=== PATIENT | male | born 1965 | race Caucasian/White ===

== ENCOUNTER 2017-06-27 04:21 | Emergency (ER) | payer SELFPAY ==
[~2017-06-27] VITALS: Ht 170.2 cm; Wt 78.5 kg
[2017-06-27 04:24] VITALS: Ht 170.2 cm; Wt 78.5 kg
[2017-06-27] MEDS ORDERED: TAMS-14 PO (05:17)
[2017-06-27 05:34] LABS: ADD UMIC YES; UR ASCORBIC ACID NEGATIVE (NEGATIVE); UR BACTERIA FEW /HPF (NONE SEEN); UR BILIRUBIN (Dip) NEGATIVE (NEGATIVE); UR BLOOD (Dip) 1+ mg/dL (NEGATIVE); UR CLARITY CLEAR (CLEAR); UR COLOR STRAW (YELLOW); UR GLUCOSE (Dip) NEGATIVE (NEGATIVE); UR KETONES (Dip) NEGATIVE (NEGATIVE); UR LEUKOCYTE ESTERASE (Dip) NEGATIVE Leu/ul (NEGATIVE); UR NITRITE (Dip) NEGATIVE (NEGATIVE); UR RBC 0 /HPF (0-5); UR SPECIFIC GRAVITY (Dip) 1.005 (1.003-1.030); UR TOTAL PROTEIN (Dip) NEGATIVE (NEGATIVE); UR UROBILINOGEN (Dip) NEGATIVE (NEGATIVE)
--- NOTE | 2017-06-27 05:42 | ERD ---
ER Documentation Chief Complaint Date/Time DATE: 06/27/17 TIME: 05:39 Chief Complaint urinary retention since 3 hours ago HPI 1-year-old male presenting to the emergency department with complaints of urinary retention for the past 3 hours. He states he last urinated at 9 PM yesterday. Symptoms are constant. He has had these symptoms multiple times in the past requiring Coleman catheter. He has also had genitourinary surgical procedures in [place] is unable to explain exactly what the surgeries were. He has had no fevers, recent surgery, or other symptoms. ROS All systems reviewed and are negative except as per history of present illness. Medications Home Meds Active Scripts Tamsulosin Hcl* (Flomax*) 0.4 Mg Cap.er.24h, 0.4 MG PO BID, #20 CAP Prov:WILSON GILBERT PA-C 06/27/17 Allergies Allergies: Coded Allergies: No Known Allergy (Unverified , 09/09/13) PMhx/Soc History of Surgery: Yes (urethral surgery) Hx Alcohol Use: Yes Hx Substance Use: No Hx Tobacco Use: No Smoking Status: Never smoker Physical Exam Vitals Vital Signs Date Time Temp Pulse Resp B/P Pulse Ox O2 Delivery O2 Flow Rate FiO2 06/27/17 04:24 97.9 98 20 146/97 98 Physical Exam Const: Toxic, well-appearing male in no acute distress. Head: Atraumatic Eyes: Normal Conjunctiva ENT: Normal External Ears, Nose and Mouth. Skin: No petechiae or rashes Back: No midline or flank tenderness Ext: No cyanosis, or edema Neur: Awake and alert Psych: Normal Mood and Affect Results 24 hrs Laboratory Tests Test 06/27/17 05:02 Urine Color STRAW Urine Clarity CLEAR Urine pH 5.0 Urine Specific [place] 1.005 Urine Ketones NEGATIVEmg/dL Urine Nitrite NEGATIVEmg/dL Urine Bilirubin NEGATIVEmg/dL Urine Urobilinogen NEGATIVEmg/dL Urine Leukocyte Esterase NEGATIVELeu/ul Urine Microscopic RBC 0/HPF Urine Microscopic WBC 0/HPF Urine Bacteria FEW/HPF Urine Hemoglobin 1+mg/dL Urine Glucose NEGATIVEmg/dL Urine Total Protein NEGATIVEmg/dl Procedures/MDM 51-year-old male presenting to the emergency department with complaints of urinary retention. Physical examination is essentially unremarkable. No exact explanation as to why the patient is experiencing urinary retention at this time , however he does have a history of it requiring Coleman catheter. Catheter was inserted by nursing staff in the department and significant amount of clear yellow urine was produced. No evidence of infection on urinalysis. The patient tolerated the procedure well. He was advised to have close follow-up with his primary care physician and urology. He was given information to do so. Was given a prescription for Flomax. Strict ER return precautions were discussed. Low suspicion for life-threatening illness at time of discharge. Departure Diagnosis: Primary Impression: Urinary retention Condition: Fair Patient Instructions: Urinary Retention, Male Referrals: EUGENIE PHELPS MD Additional Instructions: No mas mejor en 2-3 blair, regresar. Mas peor en 24 horas, regresear rapidamente. Ir a doctor primario in 5-7 blair. Usar instrucciones cuando malia medicamento. WILSON GILBERT PA-C Jun 27, 2017 05:42
[2017-07-02] MEDS ORDERED: CIPR500T4 PO (10:43)
== END 2017-06-27 05:35 | disposition home or self-care (01) ==
LOC: FTE 04:21
DX: R33.9 Retention of urine, unspecified (principal)
CPT/HCPCS: 81001; 99283

== ENCOUNTER 2017-07-02 08:08 | Emergency (ER) | END 2017-07-02 10:53 | disposition home or self-care (01) | DX: Z46.6 Encounter for fitting and adjustment of urinary device (principal) ==

== ENCOUNTER 2019-03-15 07:35 | Emergency (ER) | payer SELFPAY ==
[~2019-03-15] VITALS: Ht 154.9 cm; Wt 79.7 kg
[~2019-03-15 07:35] MED LIST: CIPR500T4 PO; TAMS-14 PO
[2019-03-15 07:41] VITALS: Ht 154.9 cm; Wt 79.7 kg
[2019-03-15] MEDS ORDERED: TAMS-14 PO (10:02)
--- NOTE | 2019-03-15 10:02 | ERD ---
ER Documentation Chief Complaint Chief Complaint unable to urinate since midnight. back pain HPI This is a 53-year-old male with a past medical history of urinary retention, noncompliant on Flomax is presenting with 1 day of urinary retention. The patient is able to urinate, but he reports that he is able to urinate is very small. He has urinary frequency and urgency. He does not endorse dysuria. He does not endorse any alleviating or exacerbating factors. He does not endorse any changes to bowel movements. He does endorse mild cramping suprapubic discomfort but no exquisite abdominal pain. The patient denies feeling sick recently. The patient denies fever or chills. The patient has had no headache or vision changes. The patient does not endorse neck or back pain. The patient denies lightheadedness or dizziness. The patient has had no chest pain or trouble breathing. The patient has had no focal deficits. The patient has had no weakness or numbness or tingling to the face or extremities. ROS All systems reviewed and are negative except as per history of present illness. Medications Home Meds Active Scripts Ciprofloxacin Hcl* (Ciprofloxacin Hcl*) 500 Mg Tablet, 500 MG PO BID for 7 Days, TAB Prov:ELIE NGO PA-C 07/02/17 Tamsulosin Hcl* (Flomax*) 0.4 Mg Cap.er.24h, 0.4 MG PO BID, #20 CAP Prov:WILSON GILBERT PA-C 06/27/17 Allergies Allergies: Coded Allergies: No Known Allergy (Unverified , 09/09/13) PMhx/Soc History of Surgery: No Anesthesia Reaction: No Hx Neurological Disorder: No Hx Respiratory Disorders: No Hx Cardiac Disorders: No Hx Psychiatric Problems: No Hx Miscellaneous Medical Probl: Yes (Urinary retention, previous urethral trauma from years ago.) Hx Alcohol Use: Yes Hx Substance Use: No Hx Tobacco Use: No Smoking Status: Never smoker FmHx Family History: No diabetes Physical Exam Vitals Vital Signs Date Temp Pulse Resp B/P (MAP) Pulse Ox O2 O2 Flow FiO2 Time Delivery Rate 03/15/19 97.7 95 18 164/101 95 07:41 (122) Physical Exam Const: No acute distress Head: Atraumatic Eyes: Normal Conjunctiva ENT: Normal External Ears, Nose and Mouth. Neck: Full range of motion. No meningismus. Resp: Clear to auscultation bilaterally Cardio: Regular rate and rhythm, no murmurs Abd: Soft, non distended. Mild suprapubic tenderness and fullness. Normal bowel sounds : Beamer Helper present at all times. 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 Skin: No petechiae or rashes Back: No midline or flank tenderness Ext: No cyanosis, or edema Neur: Awake and alert Psych: Normal Mood and Affect Result Diagram: 03/15/19 0832 03/15/19 0831 Results 24 hrs Laboratory Tests Test 03/15/19 08:31 03/15/19 08:32 Urine Color YELLOW Urine Clarity SLIGHTLY CLOUDY Urine pH 5.0 Urine Specific [place] 1.015 Urine Ketones TRACE mg/dL Urine Nitrite NEGATIVE mg/dL Urine Bilirubin NEGATIVE mg/dL Urine Urobilinogen NEGATIVE mg/dL Urine Leukocyte Esterase NEGATIVE Kary/ul Urine Microscopic RBC 0 /HPF Urine Microscopic WBC 2 /HPF Urine Squamous Epithelial Cells FEW /HPF Urine Mucus FEW /HPF Urine Hemoglobin NEGATIVE mg/dL Urine Glucose NEGATIVE mg/dL Urine Total Protein NEGATIVE mg/dl Sodium Level 138 mmol/L Potassium Level 4.5 mmol/L Chloride Level 106 mmol/L Carbon Dioxide Level 22 mmol/L Anion Gap 10 Blood Urea Nitrogen 15 mg/dl Creatinine 1.07 mg/dl Est Glomerular Filtrat Rate mL/min > 60 mL/min Glucose Level 140 mg/dl Calcium Level 9.6 mg/dl White Blood Count 12.1 10^3/ul Red Blood Count 4.84 10^6/ul Hemoglobin 15.6 g/dl Hematocrit 44.7 % Mean Corpuscular Volume 92.4 fl Mean Corpuscular Hemoglobin 32.2 pg Mean Corpuscular Hemoglobin Concent 34.9 g/dl Red Cell Distribution Width 13.2 % Platelet Count 254 10^3/UL Mean Platelet Volume 10.1 fl Immature Granulocytes % 0.600 % Neutrophils % 88.7 % Lymphocytes % 8.5 % Monocytes % 2.0 % Eosinophils % 0.0 % Basophils % 0.2 % Nucleated Red Blood Cells % 0.0 /100WBC Immature Granulocytes # 0.070 10^3/ul Neutrophils # 10.7 10^3/ul Lymphocytes # 1.0 10^3/ul Monocytes # 0.2 10^3/ul Eosinophils # 0.0 10^3/ul Basophils # 0.0 10^3/ul Nucleated Red Blood Cells # 0.0 10^3/ul Procedures/MDM MDM The patient's presentation warrants further investigation. Previous medical records, if available, were reviewed. LABS The patient's laboratory testing was obtained and reviewed. No emergent treatment was required unless described below. CBC: Mild leukocytosis, likely reactive. No E/o systemic infection or severe anemia or thrombocytopenia Chemistry: No E/o severe acidosis or alkalosis or renal failure or liver disease or diabetic ketoacidosis Urine: No E/o acute infection or hematuria TREATMENT/DISPOSITION The patient presents for urinary retention. There is no evidence of infection. There is no evidence of renal impairment. The patient does have a history of urinary retention in the past. He has been previously started on Flomax, but he is no longer taking this. He has not followed up with anyone in the past. The patient did provide a small urine sample. A bladder scan was completed after the sample was provided and the patient still had 900 cc of urine within the bladder. The patient will have a Coleman catheter placed and will be given a leg bag. The patient will need to have this in place for several days and was instructed to follow-up in the emergency department to have it removed. The patient will be started on a prescription of Flomax. The patient does require urology outpatient evaluation. The patient will be provided resources. 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 The Coleman catheter passed through without complication. I do not suspect urethral stricturing. DISCHARGE Upon reevaluation of the patient, symptoms have improved. No emergent diagnoses were identified. At this time, I feel that the patient stable for discharge. The patient was instructed to follow-up with a primary care physician in 1-3 days. The patient will be given strict precautions with which to return to the emergency department. Prescriptions: Flomax The patient's blood pressure was elevated at greater than 120/80 while in the emergency department. The patient was otherwise stable with no evidence of hypertensive urgency or emergency. The patient does not require admission for blood pressure control. I have discussed with the patient the risks of hypertension. I have instructed the patient to return to the ER for any new or worsening symptoms including chest pain, shortness of breath, headache, blurred vision, confusion, nausea, vomiting or LOC. I have advised the patient to follow up with the primary care physician for outpatient monitoring and treatment for hypertension in 1-3 days. Disclaimer: Inadvertent spelling and grammatical errors are likely due to EHR/ dictation software use and do not reflect on the overall quality of patient care. Note that the electronic time recorded on this note does not necessarily reflect the actual time of the patient encounter. Departure Diagnosis: Primary Impression: Urinary retention Additional Impression: Abdominal fullness in suprapubic region Condition: Stable Patient Instructions: Urinary Retention, Male Additional Instructions: Please return to the emergency department in 2 to 3 days for reassessment of your Coleman catheter and likely removal. It is very important to follow-up with a primary care physician and a urologist. Thank you for for coming to [facility] for your care today. Please ask your nurse or provider if you have questions about your care today and do not leave until all your questions have been answered. Please use any medications given as directed and follow-up with your doctor (or the doctor you were referred to) in the next 1-3 days. If you do not have a primary care doctor you may follow up at the [facility] or [facility] (listed below). You may also use motrin and tylenol as needed for fever and/or pain unless instructed otherwise by your provider or nurse. Indications for more urgent follow-up have been discussed, but you may return to the Emergency Department at ANY time for any worrisome or worsening symptoms. If you have abdominal pain, please know that no test or exam you received is perfect and you should follow up within 8 hours for continued pain. If you had any imaging studies today, such as an X-Ray or CT Scan, these studies will be reviewed later by a radiologist. You will be called if there are important findings that were not identified today, so make sure the contact information you provided at registration is correct. If you received any narcotic pain control medicine today, such as Vicodin, Morphine or Dilaudid, your coordination and judgment may be affected for a number of hours. Please do not drive or operate heavy machinery, and you may want someone to assist you at home. If you were given a prescription for narcotic medication, be aware that it is very addictive- use sparingly and only if necessary. PLEASE SEEK FURTHER EVALUATION AND MANAGEMENT AT YOUR DOCTORS OFFICE WITHIN THE NEXT 1-3 DAYS. IT IS YOUR RESPONSIBILITY TO MAKE AN APPOINTMENT FOR FOLOW-UP CARE. IF YOU HAVE A PRIMARY DOCTOR, PLEASE CALL THEIR OFFICE TO SCHEDULE AN APPOINTMENT FOR FOLLOW UP. IF YOU DO NOT HAVE A PRIMARY DOCTOR YOU CAN CALL OUR PHYSICIAN REFERRAL HOTLINE AT IF YOU CAN NOT AFFORD TO SEE A PHYSICIAN YOU CAN CHOSE FROM THE FOLLOWING [facility] CLINICS: [facility] [address] [facility] [address] [facility] [facility] [address] [facility] [address] [facility] [address] [facility]. [facility]. [address] JABIER GAMBOA MD Mar 15, 2019 09:59
[2019-03-15 10:13] VITALS: BP 145/78; PULSE 76; RESP 18
== END 2019-03-15 10:14 | disposition home or self-care (01) ==
LOC: E/R 07:35
DX: R33.9 Retention of urine, unspecified (principal); R14.0 Abdominal distension (gaseous)
CPT/HCPCS: 80048; 81001; 81003; 85025

== ENCOUNTER 2019-03-17 15:45 | Emergency (ER) | payer MEDICAID, OTHER ==
[~2019-03-17] VITALS: Ht 170.2 cm; Wt 79.1 kg
[~2019-03-17 15:45] MED LIST changes: -CIPR500T4 PO
[2019-03-17 16:03] VITALS: BP 141/85; PULSE 90; RESP 22; Ht 170.2 cm; Wt 79.1 kg
--- NOTE | 2019-03-17 17:47 | ERD ---
ER Documentation Chief Complaint Chief Complaint brownlee catheter removal HPI Patient is a 53-year-old male, with past medical history of urinary retention, non-appointment with Flomax, presents to the ER for concerns of Brownlee catheter removal. Patient had Brownlee catheter placed 2 days ago due to urinary retention. Patient was noted to have 900 cc in his bladder despite being able to pee a "small amount". Patient has not followed up with urologist. Patient denies fevers or chills. Patient denies abdominal pain. Patient denies any headache, chest pain, flank pain, hematuria. Patient admits to previous history of urinary retention and Brownlee catheter placement. ROS All systems reviewed and are negative except as per history of present illness. Medications Home Meds Active Scripts Tamsulosin Hcl* (Flomax*) 0.4 Mg Cap.er.24h, 0.4 MG PO QPM, #30 CAP Prov:JABIER GUILLAUME MD 03/15/19 Discontinued Scripts Ciprofloxacin Hcl* (Ciprofloxacin Hcl*) 500 Mg Tablet, 500 MG PO BID for 7 Days, TAB Prov:ELIE NGO PA-C 07/02/17 Tamsulosin Hcl* (Flomax*) 0.4 Mg Cap.er.24h, 0.4 MG PO BID, #20 CAP Prov:WILSON GILBERT PA-C 06/27/17 Allergies Allergies: Coded Allergies: No Known Allergy (Unverified , 03/15/19) PMhx/Soc History of Surgery: No Anesthesia Reaction: No Hx Neurological Disorder: No Hx Respiratory Disorders: No Hx Cardiac Disorders: No Hx Psychiatric Problems: No Hx Miscellaneous Medical Probl: Yes (Urinary retention, previous urethral trauma from years ago.) Hx Alcohol Use: Yes Hx Substance Use: No Hx Tobacco Use: No Smoking Status: Never smoker FmHx Family History: No diabetes Physical Exam Vitals Vital Signs Date Temp Pulse Resp B/P (MAP) Pulse Ox O2 O2 Flow FiO2 Time Delivery Rate 03/17/19 99.0 90 22 141/85 93 16:03 (103) Physical Exam GENERAL: Well-developed, well-nourished male. Appears in no acute distress. HEAD: Normocephalic, atraumatic. EYES: Pupils are equally reactive bilaterally. EOMs grossly intact. No conjunctival erythema. LUNG: Clear to auscultation bilaterally. No rhonchi, wheezing, rales or coarse breath sounds. HEART: Regular rate and rhythm. No murmurs, rubs or gallops. ABDOMEN: No scars, ecchymosis or rashes noted. Soft, nontender, and nondistended. Positive bowel sounds in all four quadrants. No rebound tenderness, no guarding. (-) McBurney's point tenderness. No CVA tenderness. Brownlee catheter leg bag noted on the left lower leg with faint yellow urine. EXTREMITIES: Equal pulses bilaterally. No peripheral clubbing, cyanosis or melony a. No unilateral leg swelling. NEUROLOGIC: Alert and oriented. Moving all four extremities without any difficulty. Normal speech. Steady gait. SKIN: Normal color. Warm and dry. No rashes or lesions. Procedures/MDM MEDICAL DECISION MAKING: Patient is a 53-year-old male presents the ER for concerns of Brownlee catheter removal. Vital signs were reviewed. Patient is afebrile. Patient was not hypoxic. Patient was hemodynamically stable. Review of the patient's medical records show that patient had Brownlee catheter placed 2 days ago. Patient states he returns today because he was told to return to have his catheter removed. Patient has not seen a urologist. I explained to the patient that we would be able to remove his catheter however if he is unable to urinate on his own, he will need to have the catheter placed again. Patient stated he did not wish to wait to try to urinate on his own thus he will keep the catheter in place and follow-up with a urologist in the next 1 to 2 days. Referral information was provided. Patient was advised if he is unable to follow-up with urologist in the next 2 to 3 days he should return to the ER to have his catheter removed at that time. Patient understood and agreed with this plan. Low suspicion for urosepsis. Patient was nontoxic, nonill- appearing prior to discharge. DISCHARGE: At this time, patient is stable for discharge and outpatient management. I have instructed the patient to follow-up with his/her primary care physician in 1-2 days. I have discussed with the patient the possibility of needing to see a specialist for further workup and imaging studies if symptoms persist. I have instructed the patient to promptly return to the ER for any new or worsening symptoms including increased pain, fever, nausea, vomiting, weakness or LOC. The patient and/or family expressed understanding of and agreement with this plan. All questions were answered. Home care instructions were provided. Patients blood pressure was elevated (>120/80) but appears stable without evidence of hypertensive emergency, hypertensive urgency or end-organ failure. I had discussion with the patient about the risks of hypertension. I have advised the patient to follow up with his/her primary care physician for outpatient monitoring and treatment for hypertension in 2-3 days. I have instructed the patient to return to the ER for any new or worsening symptoms including chest pain, shortness of breath, headache, blurred vision, confusion, nausea, vomiting or LOC. Disclaimer: Inadvertent spelling and grammatical errors are likely due to EHR/dictation software use and do not reflect on the overall quality of patient care. Also, please note that the electronic time recorded on this note does not necessarily reflect the actual time of the patient encounter. Departure Diagnosis: Primary Impression: Brownlee catheter in place prior to arrival Additional Impression: History of urinary retention Condition: Fair Patient Instructions: Urinary Retention, Male Referrals: JENNIFER BOWENS MD,PEREZ EDWARD,EDUARDO PHELPS,EUGENIE BROWNE,LAURE JEFFERY,FLACO PABLO,MARYANA RICO MD,GUERO MARX MD= SAIDA DALEY RUTH C. NP RAMIN, SOROUSH ADAM RIOS,MARGARITA HOLGUIN,MARYANA BAHENA,ARASELI LEDBETTER,JUSTIN QUEZADA,OLIVER Mcnair M.D. Additional Instructions: Follow-up with your urologist in the next 2 to 3 days. If you are not seen by urologist return here for Brownlee catheter removal. Return immedaitely if you have any problems with your Brownlee catheter. NAVDEEP RIOS PA-C Mar 17, 2019 17:47
== END 2019-03-17 17:34 | disposition home or self-care (01) ==
LOC: FTE 15:45
DX: Z46.6 Encounter for fitting and adjustment of urinary device (principal); Z87.448 Personal history of other diseases of urinary system
CPT/HCPCS: 99282

== ENCOUNTER 2019-03-19 12:28 | Emergency (ER) | payer MEDICAID ==
[~2019-03-19] VITALS: Ht 175.3 cm; Wt 79.1 kg
[2019-03-19 12:40] VITALS: Ht 175.3 cm; Wt 79.1 kg
--- NOTE | 2019-03-19 15:46 | ERD ---
ER Documentation Chief Complaint Chief Complaint brownlee catheter causing pain and discomfort. pt was here on friday ROS All systems reviewed and are negative except as per history of present illness. Medications Home Meds Active Scripts Tamsulosin Hcl* (Flomax*) 0.4 Mg Cap.er.24h, 0.4 MG PO QPM, #30 CAP Prov:JABIER GUILLAUME MD 03/15/19 Discontinued Scripts Ciprofloxacin Hcl* (Ciprofloxacin Hcl*) 500 Mg Tablet, 500 MG PO BID for 7 Days, TAB Prov:ELIE NGO PA-C 07/02/17 Tamsulosin Hcl* (Flomax*) 0.4 Mg Cap.er.24h, 0.4 MG PO BID, #20 CAP Prov:WILSON GILBERT PA-C 06/27/17 Allergies Allergies: Coded Allergies: No Known Allergy (Unverified , 03/15/19) PMhx/Soc History of Surgery: No Anesthesia Reaction: No Hx Neurological Disorder: No Hx Respiratory Disorders: No Hx Cardiac Disorders: No Hx Psychiatric Problems: No Hx Miscellaneous Medical Probl: Yes (Urinary retention, previous urethral trauma from years ago.) Hx Alcohol Use: Yes Hx Substance Use: No Hx Tobacco Use: No Smoking Status: Never smoker Physical Exam Vitals Vital Signs Date Temp Pulse Resp B/P (MAP) Pulse Ox O2 O2 Flow FiO2 Time Delivery Rate 03/19/19 99.3 106 18 147/66 97 12:40 (93) Physical Exam Const: No acute distress Head: Atraumatic Eyes: Normal Conjunctiva ENT: Normal External Ears, Nose and Mouth. Neck: Full range of motion. No meningismus. Resp: Clear to auscultation bilaterally Cardio: Regular rate and rhythm, no murmurs Abd: Soft, non tender, non distended. Normal bowel sounds Skin: No petechiae or rashes Back: No midline or flank tenderness Ext: No cyanosis, or edema Neur: Awake and alert Psych: Normal Mood and Affect Departure Diagnosis: Primary Impression: Urinary retention Additional Impression: Encounter for removal of urinary catheter Condition: Fair Patient Instructions: Urinary Retention, Male Referrals: COMM[facility] CL[facility]ICS YOU HAVE RECEIVED A MEDICAL SCREENING EXAM AND THE RESULTS INDICATE THAT YOU DO NOT HAVE A CONDITION THAT REQUIRES URGENT TREATMENT IN THE EMERGENCY DEPARTMENT. FURTHER EVALUATION AND TREATMENT OF YOUR CONDITION CAN WAIT UNTIL YOU ARE SEEN IN YOUR DOCTORS OFFICE WITHIN THE NEXT 1-2 DAYS. IT IS YOUR RESPONSIBILITY TO MAKE AN APPOINTMENT FOR FOLOW-UP CARE. IF YOU HAVE A PRIMARY DOCTOR --you should call your primary doctor and schedule an appointment IF YOU DO NOT HAVE A PRIMARY DOCTOR YOU CAN CALL OUR PHYSICIAN REFERRAL HOTLINE AT IF YOU CAN NOT AFFORD TO SEE A PHYSICIAN YOU CAN CHOSE FROM THE FOLLOWING [facility], [facility] [address] [facility] [address] [facility] [address] [facility]. [facility] [address] [facility]. [facility] [address] [facility]. [facility]. [address] Additional Instructions: Call your primary care doctor TOMORROW for an appointment during the next 1-2 days.See the doctor sooner or return here if your condition worsens before your appointment time. Follow up with urology ADDY MARSHALL DO Mar 19, 2019 15:46
== END 2019-03-19 15:57 | disposition home or self-care (01) ==
LOC: FTE 12:28
DX: T83.84XA Pain due to genitourinary prosthetic devices, implants and grafts, initial encounter (principal); R33.9 Retention of urine, unspecified; Y73.2 Prosthetic and other implants, materials and accessory gastroenterology and urology devices associated with adverse incidents; Z46.6 Encounter for fitting and adjustment of urinary device
CPT/HCPCS: 99283